=== PATIENT | female | born 2000 | race African-American/Black ===

== ENCOUNTER → 2022-12-31 14:44 | Outpatient (CLI) | payer OTHER, SELFPAY ==
--- NOTE | 2022-12-31 14:49 | DI.MRI.S_ITS ---
PROCEDURE: MR SHOULDER LT WO CON INDICATIONS: Pain in left shoulder TECHNIQUE: Noncontrast oblique coronal T2 fast spin echo with fat saturation, oblique sagittal T1 spin echo and T2 fast spin echo with fat saturation, axial T1 spin echo and T2 fast spin echo with fat saturation through the shoulder. COMPARISON: None. FINDINGS: Image quality: Excellent. Rotator cuff: The supraspinatus, infraspinatus, teres minor, and subscapularis tendons appear intact throughout. No significant rotator cuff muscle atrophy. Bones and bursae: Mild osseous edema is seen surrounding the acromioclavicular joint with mild capsular thickening. There is also mild osseous edema at the distal clavicle adjacent to the coracoclavicular ligament attachment. The acromioclavicular joint is normally aligned without surrounding soft tissue edema. Coracoclavicular ligament appears to remain in continuity. No focal glenohumeral cartilage defect. No significant acromioclavicular degenerative changes. Trace subacromial/subdeltoid bursal fluid. No significant glenohumeral effusion. Capsule and soft tissues: No displaced labral tear. The proximal biceps long head tendon is intact. There is mild partial effacement of the normal fat signal in the rotator interval. The glenohumeral ligaments are grossly intact. IMPRESSION: Mild osseous edema is seen surrounding the acromioclavicular joint and at the distal clavicle involving the attachment site of the coracoclavicular ligament. Findings are suspicious for a prior Reina type 1 acromioclavicular separation injury. No definite ligamentous disruption is seen and there is normal alignment of the acromioclavicular joint. Approved by: Brandt Dunacn M.D. on 01/02/2023 at 8:52
== END ==
PROVIDERS: Referring Provider Physician Assistant; Visit Provider Physician Assistant
DX: M25.512 Pain in left shoulder (principal); M25.412 Effusion, left shoulder
CPT/HCPCS: 73221

== ENCOUNTER → 2023-06-21 09:50 | Outpatient (CLI) | payer OTHER, SELFPAY ==
--- NOTE | 2023-06-21 | DI.MRI.S_ITS ---
PROCEDURE: MR SHOULDER LT W CON INDICATIONS: LEFT SHOULDER PAIN TECHNIQUE: After the administration of 12 mL of dilute intra-articular Gadolinium contrast, oblique coronal T1 and T2 spin echo with fat saturation, oblique sagittal T1 spin echo with and without fat saturation, oblique sagittal T2 fast spin echo with fat saturation, axial T1 spin echo with fat saturation through the shoulder. COMPARISON: [facility], MR, MR SHOULDER LT WO CON, 12/31/2022, 15:13. FINDINGS: Image quality: Excellent. Rotator cuff: Tendinosis and low-grade bursal surface partial thickness tear involving distal supraspinatus extending to musculotendinous junction is seen. Distal infraspinatus and subscapularis tendinosis is also noted. No full-thickness rotator cuff tendon rupture. No rotator cuff muscle atrophy on sagittal images. Bones and bursae: No bone marrow contusions or fractures. No acromioclavicular joint degeneration. The acromion demonstrates conventional anatomy, without an os acromiale. Capsule and soft tissues: The glenohumeral ligaments are intact. Subtle fraying of superior anterior labrum with subtle contrast extension at 12 to 1 o'clock position concerning for subtle superior anterior labral tear. The long head of the biceps tendon demonstrates normal location and morphology. The rotator interval appears normal, without fibrosis. The coracohumeral ligament is of normal thickness. No intra-articular bodies. IMPRESSION: 1. Finding is concerning for subtle superior anterior labral tear at 12 to 1 o'clock position. 2. Low-grade bursal surface partial-thickness tear involving distal supraspinatus extending to musculotendinous junction. Mild distal infraspinatus and subscapularis tendinosis. No full-thickness rotator cuff tendon rupture. 3. No fracture or dislocation. No suspicious bony lesions. No intra-articular loose bodies. Dictated by: Rosales Medrano M.D. on 06/21/2023 at 11:40 Approved by: Rosales Medrano M.D. on 06/21/2023 at 11:47
--- NOTE | 2023-06-21 | DI.RAD.S_ITS ---
PROCEDURE: FL SHOULDER INJECTION MR/CT LT COMPARISON: None. INDICATIONS: Left shoulder injury FINDINGS: The left shoulder was prepped and draped in a sterile fashion. Using fluoroscopic guidance the target was marked and anesthetized with 1% lidocaine without epinephrine. A 22 gauge spinal needle was then advanced into the shoulder joint. Proper position was verified by injecting a small amount of contrast. A total of 10 cc of contrast was then injected. The patient will go to MR for further imaging. IMPRESSION: Fluoroscopic Ade guided arthrogram was performed with injection of gadolinium for subsequent MR. Dictated by: Pernell Sorenson M.D. on 06/21/2023 at 12:25 Approved by: Pernell Sorenson M.D. on 06/21/2023 at 12:25
== END ==
PROVIDERS: Referring Provider Orthopaedic Surgery; Visit Provider Orthopaedic Surgery
DX: M75.112 Incomplete rotator cuff tear or rupture of left shoulder, not specified as traumatic (principal); M25.512 Pain in left shoulder
CPT/HCPCS: 23350; 73222

== ENCOUNTER 2023-09-26 08:03 | Emergency (ER) | payer OTHER, SELFPAY ==
--- NOTE | 2023-09-26 08:08 | ED.GENADULT ---
HPI - General Adult General Chief complaint: Urogenital-Female Stated complaint: lower back pain Time Seen by Provider: 09/26/23 08:07 History of Present Illness HPI narrative: 23-year-old otherwise healthy woman with no significant medical history presents complaining of mild bilateral flank pain for 3 days, a yellowish vaginal discharge, dysuria without significant frequency. She also notes that she developed a ?cyst? by her urethra the frequently drains. If that is not currently irritated or painful but it is draining. Last sexual intercourse was number, LMP was August 19. She describes no fevers but did have some sweats last night, no nausea, vomiting, diarrhea, abdominal pain. She also incidentally notes small rash on the bottom of her right foot that she would like further evaluated. It has been there for at least a year, will occasionally itch, she is tried [id number]-rqm-[id number] antifungal cream that seemed to make it slightly better. It seems like it does get worse when her feet are sweating. It is not otherwise painful Related Data Previous Rx's Medication Instructions Recorded amoxicillin 875 mg-potassium 1 tab PO BID #14 tabs 09/26/23 clavulanate 125 mg tablet clotrimazole 1 % topical cream 1 applic topical BID #15 grams 09/26/23 doxycycline hyclate 100 mg capsule 100 mg PO BID #14 caps 09/26/23 triamcinolone acetonide 0.1 % 1 applic topical BID #30 grams 09/26/23 topical ointment Allergies Allergy/AdvReac Type Severity Reaction Status Date / Time No Known Drug Allergies Allergy Verified 09/26/23 09:39 Review of Systems Review of Systems Narrative: Pertinent positive and negative findings as per HPI Exam Initial Vital Signs Initial Vital Signs: Vital Signs Temperature 98.9 F 09/26/23 08:17 Pulse Rate 79 09/26/23 08:17 Respiratory Rate 16 09/26/23 08:17 Blood Pressure 130/65 09/26/23 08:17 Pulse Oximetry 100 09/26/23 08:17 Oxygen Delivery Method Room Air 09/26/23 08:17 General: Alert appropriate in no acute distress Respiratory: Able to speak in full sentences, no obvious respiratory distress Skin: There is a circular patch approximately 2 cm in size on the plantar surface of her right foot. There is no vesicles but there are some crusting areas. There is not a definitive defined serpiginous edge. There is some central clearing. It is not tender to the touch Pelvic exam: External genitalia is healthy-appearing. She has very well-developed skin glands bilaterally. With palpation along the left gland there is a white discharge that is easily expressed without significant pain or odor. Bimanual exam shows some minor vaginal irritation but not significant beefy red erythema, she has mild tenderness with cervical motion but certainly not classic cervical motion tenderness 1 would expect with PID. She has no adnexal tenderness. Uterus is not enlarged. Neurologic: Grossly intact no obvious asymmetries or abnormalities Psych: appropriate insight and affect, cooperative Course Orders Ordered: Discontinued Medications Ceftriaxone Sodium (Ceftriaxone 1,000 Mg Vial) 500 mg IM NOW ONE Stop: 09/26/23 09:20 Last Admin: 09/26/23 09:40 Dose: 500 mg Documented By: GABRIELLE Lidocaine HCl (Lidocaine 1% (Pf) 5 Ml) 2.1 ml INJ NOW ONE Stop: 09/26/23 09:20 Last Admin: 09/26/23 09:40 Dose: 2.1 ml Documented By: GABRIELLE Medical Decision Making Lab Data Labs: Lab Results 09/26/23 09/26/23 Range/Units 08:10 08:57 Urine RBC None seen (0-5/HPF) Urine WBC 5-10/hpf H (0-5/HPF) Ur Squamous Epith Cells 1-5 /hpf (0-5/HPF) Urine Bacteria Moderate (10-30) H (None) Ur Culture Indicated? Specimen cultured Vol Urine Centrifuged 10ml (spun) Ur Chlamydia DNA (PCR) Not detected N gonorrhoeae DNA (PCR) Not detected Point of Care Testing Test Results Negative Urine Dip Bedside Urine Glucose Negative Bedside Urine Bilirubin - Negative Bedside Urine Ketone - Negative Urine Specific [place] 1.030 Bedside Urine Occult Blood - Negative Bedside Urine pH 6.0 Bedside Urine Protein - Negative Bedside Urine Leukocytes + 70 Esterase Point of care testing: Point of Care Testing Test Results Negative Urine Dip Bedside Urine Glucose Negative Bedside Urine Bilirubin - Negative Bedside Urine Ketone - Negative Urine Specific [place] 1.030 Bedside Urine Occult Blood - Negative Bedside Urine pH 6.0 Bedside Urine Protein - Negative Bedside Urine Leukocytes + 70 Esterase MDM Narrative Medical decision making narrative: CC: Dysuria, vaginal discharge, rash on her foot Data collected from: patient Differential considered: Regarding the rash on the foot, dyshidrotic eczema comment nummular eczema, ringworm, doubt parasite. With the vaginal discharge gonorrhea, chlamydia, bacterial vaginosis, yeast, infected skin gland, UTI. No significant systemic symptoms to suggest intra-abdominal abscess or pyelonephritis Exam documented above, pertinent findings include: Minor irritation only on exam. Mild white non odorous discharge from her vagina, similar discharge from [place]'s gland more left than the right. There is no abscess appreciated Treatments: We will empirically treat for gonorrhea with 500 mg of ceftriaxone, will also treat for PID, chlamydia, urinary tract infection and possible skin gland infection with a combination of oral doxycycline and Augmentin for 7 days For the rash on her foot we will have her try a steroid as well as antifungal cream 09/27/23 10am Lab Test results independently reviewed as above. Pertinent findings: Gonorrhea and chlamydia unremarkable. Wet prep is unremarkable. Urinalysis still suggests bladder infection and wound culture from the skene gland discharge is unremarkable Discussion: 22-year-old woman with dysuria vaginal discharge. She was treated and discharge. I contacted her by phone this morning and reviewed all of her cultures with her. She notes that she isn't feeling that much better but clearly isn't worse. Encouraged her to continue with current antibiotics and return if symptoms are worse. Discharge Plan Departure Patient Disposition: Home Clinical Impression: Vaginal discharge, Eczema, dyshidrotic Instructions: DI for Pelvic Inflammatory Disease (PID) Activity Restrictions/Additional Instructions: Thank you for coming in today With the vaginal discharge in the dysuria there are a number of possibilities, I will call you when I get the swabs returned, in the meantime treatment for all of the possibilities is basically the same. Possibilities include gonorrhea, chlamydia, bacterial vaginosis, yeast infection, pelvic inflammatory disease. In the emergency department you are given a shot of ceftriaxone and I am going to have you complete 7 days of both doxycycline and Augmentin. Regarding the cyst beside your urethra. You have very well-developed [place]'s glands. Discharge from these glands is normal. I would suggest doing a google search for [place] gland for futher information. This is entirely normal. Regarding the rash on your foot, I suspect that it is dyshidrotic eczema. For that using potent steroid cream because it is the bottom of your foot can be helpful in controlling it. I am also going to give you a prescription for a topical antifungal cream if this is more ringworm (which is a fungus, not a worm). Try both and continue the one that seems to work. If this is dyshidrotic eczema, it likely will recur intermittently. If you find that you are getting worse or develop any new symptoms, please feel free to return to the emergency department for further evaluation. Prescriptions: New amoxicillin-pot clavulanate 875-125 mg tablet 1 tab PO BID Qty: 14 0RF doxycycline hyclate 100 mg capsule 100 mg PO BID Qty: 14 0RF triamcinolone acetonide 0.1 % ointment 1 applic topical BID Qty: 30 0RF Rx Instructions: for rash bottom of foot clotrimazole 1 % cream 1 applic topical BID Qty: 15 0RF Rx Instructions: for rash bottom of foot Referrals: Angeline Waddell [Primary Care Provider] - Stand Alone Forms: Patient Portal/API
[2023-09-26 08:17] VITALS: BP 130/65; PULSE 79; RESP 16; TEMP 37.2; O2SAT 100; BMI 26.6
[2023-09-26 08:47] LABS: Urine Volume 10mL (spun)
[2023-09-26 08:48] LABS: Bacteria Urine Moderate (10-30); Culture Indicated Urine Specimen Cultured; RBC Urine None Seen (0-5/HPF); Squamous Epithelial Cell Urine 1-5 /HPF (0-5/HPF); WBC Urine 5-10/HPF (0-5/HPF)
[2023-09-26] MEDS: LIDOCAINE 1% (PF) 5 ML 2.1 ML INJ (09:40)
[2023-09-26] MEDS: cefTRIAXone 1,000 MG VIAL 500 MG IM (09:40)
[2023-09-26 10:19] LABS: Urine Chlamydia NOT DETECTED; Urine N gonorrhoeae NOT DETECTED
== END 2023-09-26 09:48 | disposition home or self-care (01) ==
PROVIDERS: Emergency Provider Emergency Medicine
DX: R10.9 Unspecified abdominal pain (principal); N89.8 Other specified noninflammatory disorders of vagina; L30.9 Dermatitis, unspecified; L30.1 Dyshidrosis [pompholyx]; R30.0 Dysuria
CPT/HCPCS: 81003; 81015; 81025; 87070; 87086; 87205; 87210; 87491; 87591; 96372; 99283; J0696

== ENCOUNTER → 2023-12-28 12:19 | Outpatient (CLI) | payer OTHER, SELFPAY ==
--- NOTE | 2023-12-28 12:20 | DI.US.S_ITS ---
PROCEDURE: US PELVIC COMPLETE INDICATIONS: Pelvic and perineal pain TECHNIQUE: Real-time scanning was performed of the pelvic organs, with image documentation. Additional endovaginal scanning was necessary due to incomplete visualization of the adnexal and endometrial structures by transabdominal scanning. COMPARISON: None. FINDINGS: Uterus: Uterus is normal in size at 6.0 x 3.1 x 3.6 cm. The myometrium is homogeneous. The endometrium measures 2 mm combined thickness. Ovaries: The right ovary measures 3.7 x 2.2 x 3.2 cm, with a calculated ovarian volume of 13.7 cc. The left ovary measures 4.2 x 3.1 x 2.0 cm, with a calculated ovarian volume of 14.1 cc. The ovaries have a normal sonographic appearance. There greater than 12 follicles seen in each ovary. No adnexal masses are seen. Other: No pathologic free abdominal or pelvic fluid. IMPRESSION: Pelvic ultrasound without acute sonographic abnormalities. No findings identified to to explain patient's pelvic pain. Incidental note of greater than 12 follicles in the bilateral ovaries with ovarian volume measuring greater than 10 mL. o Findings meet the [place] definition of polycystic ovaries. In the absence of ovulatory dysfunction or clinically/biochemically diagnosed hyperandrogenism, findings are non specific and do not indicate the presence of polycystic ovarian syndrome. We strive to produce accurate, complete, and clear reports of imaging services. To assist us in improving patient care, this report was composed using standard report templates and voice recognition software. Therefore, it may contain abnormal punctuation, insertions and/or omissions. Occasional wrong-word or sound-alike substitutions may occur. Though we review the report and make efforts to correct it, we do recommend that the report be read carefully in proper context to recognize any text inaccuracies. Dictated by: Alvaro Caban M.D. on 12/28/2023 at 18:14 Approved by: Alvaro Caban M.D. on 12/28/2023 at 18:20
== END ==
LOC: US 12:19
PROVIDERS: Referring Provider Nurse Practitioner Family; Visit Provider Nurse Practitioner Family
DX: R10.2 Pelvic and perineal pain (principal)
CPT/HCPCS: 76830; 76856; 93975

== ENCOUNTER 2024-12-29 18:38 | Emergency (ER) | payer OTHER, SELFPAY ==
[2024-12-29 18:42] VITALS: BP 122/67; PULSE 100; RESP 16; TEMP 36.8; O2SAT 100; BMI 26.6
[2024-12-29 23:29] VITALS: PULSE 89; O2SAT 100
[2024-12-29 23:30] VITALS: BP 117/67; PULSE 90; O2SAT 100
[2024-12-30] VITALS: BP 107/64; PULSE 89; O2SAT 99
[2024-12-30 00:20] LABS: Add Manual Diff / Slide Review NO; Basophils Absolute Auto 0 /uL (0-100); Basophils Percent Auto 0.4 % (0-2); Eosinophils Absolute Auto 0 /uL (0-450); Eosinophils Percent Auto 0.4 % (2-4); Hemoglobin 12.4 g/dL (12.0-16.0); Lymphocytes Absolute Auto 3300 /uL (1100-4500); Lymphocytes Percent Auto 33.3 % (25-40); Mean Corpuscular HGB Conc 34.3 % (30-36); Mean Corpuscular Volume 90.4 fL (80-100); Monocytes Absolute Auto 700 /uL (0-900); Monocytes Percent Auto 6.8 % (3-14); Neutrophils Absolute Auto 5800 /uL (1500-7000); Neutrophils Percent Auto 59.1 % (50-75); Platelet Count 255 X10^3/uL (150-400); Red Blood Cell Count 3.98 X10^6/uL (4.0-5.2); Red Cell Distribution Width 13.2 % (11.6-14.8); White Blood Cell Count 9.8 X10^3/uL (4.5-11.0)
[2024-12-30 00:26] LABS: INR 1.1 (0.9-1.3); Prothrombin Time 12.3 SECONDS (9.4-12.5)
[2024-12-30 00:30] VITALS: BP 99/62; PULSE 86; O2SAT 100
[2024-12-30 00:32] LABS: Alanine Aminotransferase 14 IU/L (<35); Albumin 3.9 g/dL (3.5-5.0); Albumin Globulin Ratio 1.3 (1.0-2.8); Alkaline Phosphatase 53 U/L (38-126); Aspartate Aminotransferase 20 IU/L (14-36); BUN Creatinine Ratio 15.2 (6-22); Bilirubin Total 0.3 mg/dL (0.2-1.3); Blood Urea Nitrogen 10 mg/dL (7-17); Calcium 8.8 mg/dL (8.4-10.2); Carbon Dioxide 23 mmol/L (22-32); Chloride 106 mmol/L (98-107); Estimated Glomerular Filt Rate > 60 mL/min (>60); Glucose 115 mg/dL (70-99); HEMOLYSIS < 15 (0-50); Potassium 3.5 mmol/L (3.4-5.1); Sodium 138 mmol/L (137-145); Total Protein 6.9 g/dL (6.3-8.2)
--- NOTE | 2024-12-30 00:48 | ED_ITS ---
HPI - GI Bleed General Chief complaint: GI Bleed Stated complaint: bleeding out anus Time Seen by Provider: 12/29/24 23:33 Source: patient Mode of arrival: Ambulatory History of Present Illness HPI Narrative: 24-year-old female reports history of hemorrhoids noted on her intake physical examination, this morning had small amount of red flecks on toilet paper after bowel movement, more this afternoon. No fevers or chills. No nausea or vomiting. No recent exposure to antibiotics. No history of Crohn's disease or inflammatory bowel disease known. Denies use of blood thinner medications. No local trauma recalled. Not necessarily mixed with stool. No loose stools, no hard stools. No current murmur mclaughlin stools. Related Data Previous Rx's Medication Instructions Recorded amoxicillin 875 mg-potassium 1 tab PO BID #14 tabs 09/26/23 clavulanate 125 mg tablet clotrimazole 1 % topical cream 1 applic topical BID #15 grams 09/26/23 doxycycline hyclate 100 mg capsule 100 mg PO BID #14 caps 09/26/23 triamcinolone acetonide 0.1 % 1 applic topical BID #30 grams 09/26/23 topical ointment Allergies Allergy/AdvReac Type Severity Reaction Status Date / Time No Known Drug Allergies Allergy Verified 12/29/24 18:42 Patient History Social History Smoking Status: Never smoker Smoking Status: Never smoker Exam Narrative Exam Narrative: GENERAL: Well-developed patient, in mild distress. HEAD: Atraumatic. Normocephalic. EYES: Pupils equal round and reactive. Extraocular motions intact. No scleral icterus. No injection or drainage. ENT: Nose without bleeding, purulent drainage. Throat without erythema, tonsillar hypertrophy or exudate. Airway patent. NECK: Trachea midline. Non tender CARDIOVASCULAR: Regular rate and rhythm without murmurs, gallops, or rubs. RESPIRATORY: Clear to auscultation. Breath sounds equal bilaterally. No wheezes, rales, or rhonchi. GASTROINTESTINAL: Abdomen soft, non-tender, nondistended. EXTREMITIES: No edema or joint tenderness. Rectal: External inspection with 3:00 a.m. right-sided non thrombosed hemorrhoid noted. No obvious other lesions. No MONICA done. BACK: Nontender without deformity or crepitance. No flank tenderness. NEURO: AOx3. Motor functions grossly nonfocal SKIN: No rash or erythema of visible areas Initial Vital Signs Initial Vital Signs: Vital Signs Temperature 98.3 F 12/29/24 18:42 Pulse Rate 100 H 12/29/24 18:42 Respiratory Rate 16 12/29/24 18:42 Blood Pressure 122/67 12/29/24 18:42 Pulse Oximetry 100 12/29/24 18:42 Oxygen Delivery Method Room Air 12/29/24 18:42 Course Orders Ordered: ED Orders 12/29/24 23:55 CBC Auto Diff [Complete Blood Count AUTO DIFF] Stat CMP [Comprehensive Metabolic Panel] Stat Prothrombin Time INR Stat Vital Signs Vital signs: Vital Signs - 8 hr 12/29/24 18:42 12/29/24 23:29 12/29/24 23:30 Temperature 98.3 F Pulse Rate 100 H 89 Respiratory Rate 16 Blood Pressure 122/67 117/67 Pulse Oximetry 100 100 Oxygen Delivery Method Room Air 12/29/24 23:30 12/30/24 00:00 12/30/24 00:00 Temperature Pulse Rate 90 89 Respiratory Rate Blood Pressure 107/64 Pulse Oximetry 100 99 Oxygen Delivery Method 12/30/24 00:30 12/30/24 00:30 12/30/24 01:00 Temperature Pulse Rate 86 Respiratory Rate Blood Pressure 99/62 99/58 L Pulse Oximetry 100 Oxygen Delivery Method 12/30/24 01:00 Temperature Pulse Rate 81 Respiratory Rate 18 Blood Pressure Pulse Oximetry 99 Oxygen Delivery Method MDM - GI Bleed Lab Data Attestation: I reviewed the patient's lab results. Lab results narrative: White blood cell count 9800, hemoglobin 12.4, normal platelets. Basic metabolic panel unremarkable. Liver functions normal. INR 1.1 normal. 12/29/24 23:55 12/29/24 23:55 Labs: Lab Results 12/29/24 Range/Units 23:55 WBC 9.8 (4.5-11.0) X10^3/uL RBC 3.98 L (4.0-5.2) X10^6/uL Hgb 12.4 (12.0-16.0) g/dL Hct 36.0 (36-46) % MCV 90.4 (80-100) fL MCH 31.0 (26-34) PG MCHC 34.3 (30-36) % RDW 13.2 (11.6-14.8) % Plt Count 255 (150-400) X10^3/uL Neut % (Auto) 59.1 (50-75) % Lymph % (Auto) 33.3 (25-40) % [place] % (Auto) 6.8 (3-14) % Eos % (Auto) 0.4 L (2-4) % Baso % (Auto) 0.4 (0-2) % Neut # (Auto) 5800 (8045-5109) /uL Lymph # (Auto) 3300 (2185-2284) /uL [place] # (Auto) 700 (0-900) /uL Eos # (Auto) 0 (0-450) /uL Baso # (Auto) 0 (0-100) /uL PT 12.3 (9.4-12.5) SECONDS INR 1.1 (0.9-1.3) Sodium 138 (137-145) mmol/L Potassium 3.5 (3.4-5.1) mmol/L Chloride 106 (98-107) mmol/L Carbon Dioxide 23 (22-32) mmol/L BUN 10 (7-17) mg/dL Creatinine 0.66 (0.52-1.04) mg/dL Estimated GFR > 60 (>60) mL/min BUN/Creatinine Ratio 15.2 (6-22) Glucose 115 H (70-99) mg/dL Calcium 8.8 (8.4-10.2) mg/dL Total Bilirubin 0.3 (0.2-1.3) mg/dL AST 20 (14-36) IU/L ALT 14 (<35) IU/L Alkaline Phosphatase 53 (38-126) U/L Total Protein 6.9 (6.3-8.2) g/dL Albumin 3.9 (3.5-5.0) g/dL Globulin 3.0 (1.7-4.1) g/dL Albumin/Globulin Ratio 1.3 (1.0-2.8) MDM Narrative Medical decision making narrative: 24-year-old female with history of hemorrhoids has bright red blood per rectum spotting today and then more imported blood tests evening. On exam has hemorrhoid 3 o'clock position not obviously thrombosed. Screening labs unremarkable, coags and platelets normal. Normal hemoglobin. We discussed CT abdomen and pelvis advanced imaging, hold for now. Trial of [id number]-lbixscc Anusol/preparation H. Advice increase fiber in the diet. Consider neap-usr-yerahcd stool softener. Could consider lower endoscopy look for other sources of lower gastrointestinal bleeding in follow up. Follow up with PCP through [facility] clinic advised. Return precautions discussed. Discharge Plan Departure Patient Disposition: Home Clinical Impression: Lower gastrointestinal hemorrhage, Hemorrhoids Instructions: DI for Hemorrhoids Activity Restrictions/Additional Instructions: Suspected lower gastrointestinal bleeding by history. Hemorrhoids reported from physical exam entry into the . And found on examination today in the emergency department. Screening labs unremarkable. No fever, normal vital signs. It is possible that you have lower gastrointestinal bleeding from hemorrhoids alone. Consider lower endoscopy referral from your regular doctor to look for other causes of bleeding besides your hemorrhoids, if indicated. Consider use of oymo-odc-abzzvaq preparation H or Anusol topical steroid cream to reduce inflammation. Consider increased fiber in your diet. Consider use of srco-ick-rlwpenp Colace/bisacodyl medication stool softener. Recheck with your regular provider at [facility] clinic advised in next couple of days. Further workup as an outpatient for now. Return earlier to this/nearest emergency department for any change worsening symptoms or any concerns prior. Prescriptions: No Action amoxicillin-pot clavulanate 875-125 mg tablet 1 tab PO BID Qty: 14 0RF doxycycline hyclate 100 mg capsule 100 mg PO BID Qty: 14 0RF triamcinolone acetonide 0.1 % ointment 1 applic topical BID Qty: 30 0RF Rx Instructions: for rash bottom of foot clotrimazole 1 % cream 1 applic topical BID Qty: 15 0RF Rx Instructions: for rash bottom of foot Referrals: ProviderAngeline [Primary Care Provider] - Stand Alone Forms: Patient Portal/API/Survey
[2024-12-30 01:00] VITALS: BP 99/58; PULSE 81; RESP 18; O2SAT 99
== END 2024-12-30 01:37 | disposition home or self-care (01) ==
PROVIDERS: Emergency Provider Emergency Medicine
DX: K92.2 Gastrointestinal hemorrhage, unspecified (principal); K64.9 Unspecified hemorrhoids
CPT/HCPCS: 36415; 80053; 85025; 85610; 99281; 99283